=== PATIENT | female | born 1995 | race Caucasian/White ===

== ENCOUNTER 2022-04-16 21:56 | Emergency (ER) | payer BC ==
[2022-04-16] MEDS ORDERED: Dexamethasone 4 MG TAB ONE (22:43)
[2022-04-16] MEDS ORDERED: Ketorolac Tromethamine 30 MG/ML VIAL ONE (22:43)
[2022-04-16] MEDS ORDERED: HYDROcodone/Acetaminophen 5/325 mg Tablet ONE (22:44)
== END 2022-04-16 22:50 | disposition home or self-care (01) ==
LOC: CSHERS 21:56
DX: K08.89 Other specified disorders of teeth and supporting structures (principal)
CPT/HCPCS: 96372; 99282; J1885; J8540

== ENCOUNTER 2022-04-18 22:48 | Emergency (ER) | payer BC ==
[2022-04-18] MEDS ORDERED: Lidocaine 1% MPF 2 ML VIAL ONE (23:50)
== END 2022-04-19 00:09 | disposition home or self-care (01) ==
LOC: CSHERS 22:48
DX: K04.7 Periapical abscess without sinus (principal)
CPT/HCPCS: 99282